=== PATIENT | male | born 1995 | race Caucasian/White ===

== ENCOUNTER 2025-05-15 08:18 | Inpatient (IN) | payer OTHER, SELFPAY ==
[2025-05-14] VITALS (10 sets, daily range): BP systolic 108–129; BP diastolic 74–90; BMI 30.9
[2025-05-14 13:30] LABS: Hematocrit 44.6 % (39.0-52.0); Hemoglobin 15.8 g/dL (13.0-18.0); Mean Corp Hgb Conc. 35.4 g/dL (33.0-37.0); Mean Corpuscular Volume 83.8 fL (80.0-94.0); Nucleated Red Blood Cells % 0 % (-); Platelet Count 267 10^3/uL (130-400); Red Cell Dist. Width 12.8 % (11.5-14.5)
[2025-05-14 13:47] LABS: ALT (SGPT) 47 U/L (0-50); AST (SGOT) 32 U/L (17-59); Albumin 5.0 g/dl (3.5-5.0); Alkaline Phosphatase 84 U/L (38-126); Blood Urea Nitrogen 9 mg/dl (9-20); Calcium 9.4 mg/dl (8.4-10.2); Carbon Dioxide 23 mmol/L (22-30); Chloride 104 mmol/L (98-107); Glucose 99 mg/dl (70-99); Lipase 187 U/L (23-300); Potassium 4.1 mmol/L (3.5-5.1); Sodium 137 mmol/L (135-145); Total Protein 8.5 g/dl (6.3-8.2); eGFR > 60.00
--- NOTE | 2025-05-14 15:31 | ED.GENMED ---
History of Present Illness
General
Chief Complaint: Abdominal Pain
Source: patient
Time Seen by Provider: 05/14/25 15:20
History of Present Illness
History of Present Illness:
29-year-old presents to the emergency room complaining of cramping abdominal pain, nausea, intermittent fever up to 102. He has decreased oral intake though has not been vomiting. The output into his ileostomy is more watery than normal. No
blood. Patient has a complicated history with Crohn's disease. He has had multiple abdominal surgeries including a colectomy and ileostomy. He has had revisions of his stoma as well as small bowel resection for adhesions of bowel obstruction. He
has had fistulas and abscesses in the past. Patient is followed by Dr. Darling at [facility]. Patient had his medications changed recently. He was on Stelara and was switched to it alternative biologic. He is concerned that the switch
may be causing a exacerbation.
Phy Exam
Physical Exam
Physical Exam:
General: Awake, Alert, Oriented X3. No acute distress.
Vitals: unremarkable
Head: Atraumatic
Eyes: Pupils equal, EOMI
Throat: Airway intact, no exudates
Neck: Trachea midline
Lungs: Clear and equal b/l
Heart: Regular rate, no murmurs
Abd: Soft, ostomy appliance in place, tender to palpation more on the right abdomen and under the ostomy.
Neuro: Nonfocal
Skin: Warm, dry, no rash
Extremities: pulses equal b/l, no edema
Course
Orders/Labs/Results
Orders:
Orders
05/14/25 13:23
C-Reactive Protein Urgent
Comment: ADD ON
Complete Blood Count/With Diff Urgent
Comprehensive Metabolic Panel Urgent
Lipase Urgent
05/14/25 15:29
Add On- LAB Urgent
Tests Added?: crp
CT Abd/pel W Iv And Oral Contr Urgent
Comment:
Reason For Exam: abd pain, fever, hx of crohn's multiple sx/ ileost
0.9% Sodium Chloride 1000 ml [Nss] 1,000 ml IV BOLUS
Iohexol [Omnipaque] See Protocol PO NOW STA
05/14/25 16:43
HYDROmorphone [Dilaudid] 0.25 mg IV NOW STA
05/14/25 18:48
Ondansetron Injectable [Zofran] 4 mg IV NOW STA
05/14/25 19:19
HYDROmorphone [Dilaudid] 0.25 mg IV NOW STA
05/15/25
WOUND/OSTOMY CONSULT Routine
Reason for Consult: Ileostomy
05/15/25 00:01
HYDROmorphone [Dilaudid] 0.25 mg IV NOW STA
05/15/25 01:30
Admit/Transfer Patient As Directed
Co-Sign Provider:
Level of Care: Observation services
Assign to:: Medical/Surgical
Physician / Group: Bimal
Diagnosis: Crohn's, Abdominal Pain
PRN Pain Medication Management As Directed
May give lesser potent ordered pain med per pt: Yes
preference::
Protocol:: Medication orders for pain may be administered in a
manner that supports deferring to patient preference
when the pt is:
- Requesting an ordered lesser potent pain medication.
Least to most potent pain medications are defined
as: acetaminophen < NSAID < tramadol < opioids
(morphine, oxycodone, hydromorphone).
- Requesting a lesser dose of the same medication IF
ORDERED.
- Requesting a less intrusive route of administration
if both routes are prescribed by the provider (PO <
IV).
05/15/25 01:31
Code Status As Directed
Resuscitation Status: Full Code
05/15/25 02:11
HYDROmorphone [Dilaudid] 0.25 mg IV Q4HPRN PRN
05/15/25 02:32
Acetaminophen [Tylenol] 650 mg PO Q4HPRN PRN
Lactated Ringers [Lr] 1,000 ml IV 100 mls/hr
Ondansetron Injectable [Zofran] 4 mg IV Q6HPRN PRN
Oxycodone [Roxicodone] 5 mg PO Q4HPRN PRN
05/15/25 02:32
Consult Notification Routine
Specialty to Notify: Gastroenterology
Date consulting provider notified: 05/15/25
Time consulting provider notified: 08:36
Notified:: Other
Comment: tiger text Dr Morales
GASTROINTESTINAL CONSULT Routine
Consulting Provider: Gina Morales
Was physician already notified: No
Reason for consult: Crohn's, Abd Pain
Activity As Directed
Activity Level: Ambulate
I/O [Intake/ Output] As Directed
Frequency: Per unit guidelines
Ostomy Care As Directed
Vital Signs As Directed
Frequency: Per unit guidelines
Oxygen Therapy [O2 Therapy] [RESP] Routine
Titrate/Wean O2 to maintain O2 sat greater than (%): 94
DX Deep Vein Thrombosis Video Routine
05/15/25 03:00
Flush (0.9% Sodium Chloride) [Flush (Nss)] See Dose Instructions IV PER PROTOCOL
05/15/25 Breakfast
Clear Liquid
At Your Request: Full Participation
Does patient need a safe tray?: No
05/15/25 07:24
Basic Metabolic Panel IN AM
Complete Blood Count/No Diff IN AM
05/15/25 08:00
0.9% Sodium Chloride [Nss (Preservative Free)] 10 ml IV DAILY
Pantoprazole [Protonix IV] 40 mg IV DAILY
Sertraline HCl [Zoloft] 150 mg PO DAILY
05/15/25 18:00
Enoxaparin Sodium [Lovenox] 40 mg SC QPM
Abnormal Lab Results
05/14/25 05/15/25
13:23 07:24
WBC 15.3 H 10^3/uL
(4.8-10.8)
MPV 10.7 H fL
(7.4-10.4)
Abs Immat Gran (auto) 0.1 H 10^3/uL
(0-0.05)
Absolute Neuts (auto) 12.5 H 10^3/uL
(1.4-6.5)
Neutrophils % 81.7 H %
(42.2-75.2)
Lymphocytes % 12.7 L %
(20.5-51.1)
C-Reactive Protein 73.70 H mg/L
(0.0-10.00)
Total Protein 8.5 H g/dl
(6.3-8.2)
05/15/25 07:24
05/15/25 07:24
Vital Signs
Initial and Last Documented VS:
Initial Vital Signs
Temp Pulse Resp BP Pulse Ox
98.4 F 93 16 129/89 98
05/14/25 13:05 05/14/25 13:05 05/14/25 13:05 05/14/25 13:05 05/14/25 13:05
Last Documented Vital Signs
Temp Pulse Resp BP Pulse Ox
98.3 F 77 16 109/77 100
05/16/25 10:00 05/16/25 10:00 05/16/25 10:00 05/16/25 10:00 05/16/25 10:00
MDM/Problems Addressed
Differential Diagnosis Includes:
Viral GI illness, intra-abdominal abscess, Crohn's flare, small bowel obstruction, fistula
MDM/Problems Addressed:
Patient presents to the emergency room with crampy abdominal pain, nausea, decreased appetite. He is afebrile here. White count is 15.3. CT shows no evidence of abscess. There is no bowel wall thickening or obstruction. There is a fistula noted
extending from the rectum to the ostomy. 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 They accept him in transfer. Recommended supportive care at this point.
*Radiology
Radiology exam reviewed: radiology read reviewed
*Pulse Oximetry
SaO2: 98
Patient hypoxic: no
*Critical Care Note
Total Time (30-74mins, 75-104mins- exclusive of procedures): Not Applicable
ED Attending Note
-
Portions of this chart may have been created with voice recognition software.� Occasional wrong word or��sound alike� substitutions may have occurred due to the inherent limitations of voice recognition software.
Discharge Plan
Departure
Patient Disposition: Admit
Date of Disposition: 05/14/25
Time of Disposition: 20:37
Presentation/result/management discussed w/ accepting MD/DO: Hospitalist
Condition: Fair
Discharge Problem:
Abdominal pain, Crohn's disease, Rectocutaneous fistula
Interventions
Interventions:
*Risk Screen - Suicide Last Done: 05/15/25 02:39
*General Assessment Last Done: 05/14/25 13:05
*Neglect/Abuse Screening Last Done: 05/14/25 13:05
*ED COVID-19 Vaccine History Last Done: 05/14/25 13:05
*ED Influenza Vaccine History Last Done: 05/14/25 13:05
[facility] Fall Risk Assessment Tool Last Done: 05/14/25 15:21
*Nursing Disposition Last Done: 05/15/25 02:31
FH-Tpzcft-Futrelzcco Assessment Last Done: 05/14/25 15:21
Discharge Date and Time
Discharge Date/Time: 05/15/25 02:31
[2025-05-14 16:24] LABS: C-Reactive Protein 73.70 mg/L (0.0-10.00)
[2025-05-14] MEDS: OMNIPAQUE 50 ML PO (16:33)
[2025-05-14] MEDS: DILAUDID 0.25 MG IV ×2 (17:17→19:25)
[2025-05-14] MEDS: NSS 1000 IV (17:17)
[2025-05-14] MEDS: ZOFRAN 4 MG IV (18:57)
[2025-05-15] VITALS: BP 121/75
[2025-05-15] MEDS: DILAUDID 0.25 MG IV ×4 (00:08→16:23)
--- NOTE | 2025-05-15 01:33 | HPS.HSE ---
Family Physician
-
Family Physician: Yary Edge DO
Chief Complaint
-
Abd Pain
History of Present Illness
Patient is a 29y M with PMH significant for Crohn's disease who presents to ED complaining of abdominal pain. Patient reports intermittent fevers overnight over the past week (two or three times total). He has felt increased fatigue and today
he started with crampy, diffuse abdominal discomfort. He states that his ostomy output has seemed 'more watery'. No bloody secretions / stools. No N/V.
Patient reports that his Stelara was changed to biosimilar Pyzchiva about 3-4 weeks ago and his symptoms seemed to have started thereafter. His symptoms were well-controlled on Stelara x many months.
His most recent surgery was in October 2023 At [facility] with Dr. Dickson and consisted of partial bowel resection with loop ostomy (ileostomy + mucus fistula).
His original / initial surgery was subtotal colectomy in at [facility].
Medical History
Past Medical History
Past Medical History: Reports Other
Additional Past Medical History:
Crohn's Disease
Depression
Past Surgical History: Reports Other
Additional Past Surgical History:
Colectomy
J-Pouch
Ileostomy / Reversal
Multiple Fistula Repairs, [place], etc
Partial Bowel Resection / Ostomy Revision / Mucus Fistula (October 2023)
Social History
Tobacco: Non-smoker
Alcohol: None
Family History
Family History: Not pertinent
Allergies / Home Medications
Allergies reflects when Allergies were last updated in doo.
Home Medications with original date entered in doo
Allergy/Medication List:
Allergies
Allergy/AdvReac Type Severity Reaction Status Date / Time
amoxicillin Allergy Rash Verified 05/14/25 13:08
morphine Allergy Hives Verified 05/14/25 13:08
flu vaccine Allergy Unknown Uncoded 05/14/25 13:08
Home Medications
sertraline 100 mg tablet 150 mg PO DAILY 05/15/25
ustekinumab-ttwe 90 mg/mL subcutaneous syringe (Pyzchiva) 45 mg SC Q12W 05/15/25
Review of Systems
-
History Source: Patient
A 12 point ROS was completed and negative except as noted: Yes
Constitutional: Reports Fever and Fatigue; Denies Chills
Respiratory: Denies Cough or Trouble Breathing
Cardiac: Denies Chest Pain or Palpitations
Abdomen/GI: Reports Abdominal Pain, Nausea and Diarrhea; Denies Vomiting or Bloody Stools
: Denies Dysuria, Frequency or Flank Pain
Musculoskeletal: Denies Joint Pain or Edema
Neurological: Denies Dizzy or Headache
Psych: Denies Depression or Anxiety
Physical Exam
Vital Signs
Vital Signs
Temp Pulse Resp BP Pulse Ox
98.5 F 87 18 121/75 99
05/14/25 23:30 05/15/25 00:00 05/15/25 00:00 05/15/25 00:00 05/15/25 00:00
Physical Exam
General: Other (29y M in no acute distress.)
HEENT: Moist mucous membranes
Respiratory: Clear; No Wheezes, Rales or Rhonchi
Cardiac: S1/S2 and Regular Rhythm; No Murmur
GI: Other (Abdomen is soft. Mildly / diffusely tender, RLQ / midline ostomy intact with opaque collection device overlying. )
Musculoskeletal: No Clubbing, No Cyanosis and No Edema
Neuro: AO x 3
Laboratory Results
-
05/14/25 13:23
05/14/25 13:23
Laboratory Results
Total Bilirubin 1.2 mg/dl (0.2-1.3) 05/14/25 13:23
AST 32 U/L (17-59) 05/14/25 13:23
ALT 47 U/L (0-50) 05/14/25 13:23
Alkaline Phosphatase 84 U/L (38-126) 05/14/25 13:23
Lipase 187 U/L (23-300) 05/14/25 13:23
Impression/Plan
-
A/P: Patient is a 29y M with PMH significant for Crohn's disease who presents to ED complaining of abdominal pain.
Crohn's Disease with Possible Acute Flare
- Observe overnight for further evaluation and treatment.
- CRP significantly elevated, mild leukocytosis with L shift.
- CT scan reviewed and does not show any new cutaneous fistula disease.
- There is known ileostomy and mucus fistula, but no evidence of bowel wall thickening, acute inflammation or new cutaneous fistulizing disease.
- Afebrile here in the ED - follow temperature curve.
- Supportive care for now with pain control, IVFs, etc.
- Patient accepted in transfer to [facility] for further evaluation. Typically followed by Dr. Darling. Accepted to service of Dr. Gao.
- Awaiting bed availability at [place].
- GI consulted for local evaluation if patient still awaiting transfer in the AM.
- Follow for any new / worsening symptoms.
Anxiety / Depression
- Stable. Continue sertraline.
DVT Prophylaxis: Lovenox
Code Status: Full
[2025-05-15 02:31] VITALS: BMI 29.5
[2025-05-15 02:35] VITALS: BP 109/74
[2025-05-15] MEDS: LR 1000 IV ×2 (03:15→17:36)
[2025-05-15] MEDS: ROXICODONE 5 MG PO ×3 (03:16→17:40)
--- NOTE | 2025-05-15 05:27 | PTCARENOTE ---
Pt arrived to unit at 0230 from ED on stretcher. Patient ambulated to bed w/o assist-steady gait and erect posture. Patient does endorse pain w/ ambulation in abd-See MAR. Stoma red & budded w/ stool output. IVF started. Patient made aware on POC
and is agreeable to it at this time. Bed in lowest position and locked, call allen within reach, patient has no further complaints at this time.
[2025-05-15 07:18] VITALS: BP 105/64
[2025-05-15 08:21] LABS: Hematocrit 45.0 % (39.0-52.0); Hemoglobin 15.5 g/dL (13.0-18.0); Mean Corp Hgb Conc. 34.4 g/dL (33.0-37.0); Mean Corpuscular Volume 85.7 fL (80.0-94.0); Platelet Count 273 10^3/uL (130-400); Red Cell Dist. Width 12.7 % (11.5-14.5)
[2025-05-15 08:47] LABS: Blood Urea Nitrogen 9 mg/dl (9-20); Calcium 9.3 mg/dl (8.4-10.2); Carbon Dioxide 23 mmol/L (22-30); Chloride 102 mmol/L (98-107); Estimated Creatinine Clearance > 125 ml/min; Glucose 85 mg/dl (70-99); Potassium 4.1 mmol/L (3.5-5.1); Sodium 136 mmol/L (135-145); eGFR > 60.00
--- NOTE | 2025-05-15 08:59 | WOUNDNOTE ---
WOC RN note: Patient stated he has his own ileostomy pouching supplies and that his appliance is not causing problems. He is independent in his ostomy care. Will sign off. Call if needed.
[2025-05-15] MEDS: ZOLOFT 150 MG PO (09:02)
[2025-05-15] MEDS: PROTONIX IV 40 MG IV (09:02)
[2025-05-15] MEDS: NSS (PRESERVATIVE FREE) 10 ML IV (09:02)
--- NOTE | 2025-05-15 10:23 | CM ---
Patient seen at bedside on [address]. Patient stated that he is for transfer to [place]. Patient lives alone in an apartment on the 2nd floor. Patient PCP is Dr. Edge and he uses the [facility] in [place] for pharmacy needs. Patient states that he does
not have current VN and that he anticipates returning to his home when medically appropriate. CM will continue to follow for discharge planning needs.
Plan; transfer to [place] per patient; pending medical treatment plan
--- NOTE | 2025-05-15 10:51 | CON.GI ---
Addendum entered and electronically signed by Gina Morales DO 05/15/25 12:29:
The patient was seen and examined by me independently in collaboration with the nurse practitioner.
Past medical history/social history/medications/allergies/family history reviewed.
Lab data and imaging data reviewed.
Xu Kimble is a 29-year-old male who was initially diagnosed with ulcerative colitis status post IPAA (initial dx in [address] showing pancolitis), unfortunately, following his surgery he developed persistent perirectal abscess, fistulas,
pouchitis and has required multiple I&Ds, seton placement, s/p ileostomy (07/12/22), followed by ex lap, resection of TI and anastaomosis and formation of an ileostomy on 11/01/23 for SBO, at which time he was changed form Rinvoq to Stelara. His
diagnosis was changed to Crohns disease. Reconnection currently on hold. He has previously been on inflectra (2019), Humira (02/2022-05/2023), Rinvoq (2022), Stelara (12/2023). 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 He
reports being in remission on Stelara for about a year, recently was changed to biosimilar, pyzchiva, just had his first dose a few weeks ago. He presents with 1 day of abdominal pain and just feeling 'off.' Reports watery output in ileostomy, no
increase in frequency of output, empties his bag about 3-4x per day. CT on admission shows cholelithiasis with a gallstone in the region of the neck of the gallbladder, maximum dimension of 2.[address] evidence of gallbladder wall thickening, no
significant stranding of the fat surrounding the gallbladder to suggest cholecystitis. No intrahepatic or extrahepatic biliary ductal dilatation. In the right lower abdomen and upper pelvis there is an ileostomy. There is also a mucous fistula
extending through the ostomy from the rectum. There appears to be a small amount of contrast leaks around the base of the ostomy and extends into the umbilicus. No evidence to suggest fistula extending to the umbilicus. No evidence of bowel
obstruction.
Labs on admission significant for leukocytosis, WBC 15.3 --> 7.7, hemoglobin stable at 15.5, Plt 273,, CRP elevated to 73.7
Given his complex IBD history and CT findings of fistula, and he has been accepted to [facility] where his surgeons and primary key attendant are, currently awaiting bed. I agree that this is in the best interest of his care.
Original Note:
Consultation
-
Date/Time Consultation Requested: 05/15/25 0230
Date/Time Consultation Performed: 05/15/25 1045
Requesting Provider: Luis Miguel Wallis DO
Performing Provider: JOSESITO Mc, Jasmyn Morales DO
Reason for Consultation: abdominal pain
Medical History
Chief Complaint / HPI
Chief Complaint: abdominal pain
History of Present Illness:
Pt is a 29yo with hx asthma, GERD, depression, Asperger's and crohn's disease with also hx pyoderma rash around ostomy last year . In review of [facility] records pt was originally diagnosed with ulcerative colitis DARLENE with 3 stage J pouch complicated
by perianal abscess/fistula and pouchitis with multiple I+D's seton placement s/p ileostomy 07/12/22. He had further surgery with exp lap, resection of terminal ileum and anastomosis with formation of ilesotomy/mucous fistula on 11/01/23 for small
bowel obstruction while on rivoq with care at [facility]. He now presents with abdominal pain, fever over last week with fatigue. he did recently switch from stelara to biosimilar Prychiva about 3-4 weeks ago with onset of symptoms and control for
several months with [facility]. (other prior med were Inflectra 2019, Humira 02/2022- 05/2023, Rinvoq 2022, with increased disease activity on 30mg, Stelara 12/2023 to current with recent biosimilar change several weeks ago). Pt now presents with
abdominal pain and increased watery output from ileostomy and feeling weak while at work. Pain in lower abdomen with crampy pattern. Similar to prior crohns flares. It is similar to pain he has had in past. On admission noted with WBC 15,300,
hbg 15,8, CRP 73.7, otherwise stable chemistry. Ct on admission Ileostomy is present as well as a mucous fistula extending from the region of the rectum. There is no evidence for bowel obstruction or free intraperitoneal air. No significant bowel
wall thickening is identified.There is a gallstone present in the region of the neck of the gallbladder. The gallbladder is distended, with no evidence for gallbladder wall thickening or stranding of the fat surrounding the gallbladder. No CT
findings of acute cholecystitis at this time. No evidence for biliary ductal dilation.
In review with patient he denies odynophagia, dysphagia, GERD, nausea, vomiting, blood or black in stools.
last flex sig ENDO:
Flex Sig 02/2024
- There is evidence of a total proctocolectomy with an IPAA (Ileal-Pouch Anal Anastamosis)
- The rectum was normal measuring 2 cm in length- biopsied x 4
- The pouch appeared normal (measuring 15 in length) with no evidence of ulceration of inflammation.
- The scope was advanced 10 in to the afferent limb of the J pouch - the prepouch ileum and this was normal. There was a stapled lumen that precluded evaluation of the lumen more prximally
- Small internal Hemorrhoids are present
Pathology
A. Rectum, biopsy:
- Small fragments of colorectal mucosa with � �no specific pathologic change.
�
Ileoscopy 02/2024
�- The examined portion of the ileum was normal. Patient is status-post total proctocolectomy with a loop ileostomy in the preence of an IPAA.
- The visulaized mucosa of the distal 10 cm of the ileostomy was normal.
- At 10 cm form te ileostomy orifice there was angulation and a stabple was present that despite gentel pressure and water lavege the scop was unable
to advance more proximally.
- There is no visual evidence of active IBD seen.
- No specimens collected.
Past Medical History
Past Medical History: Asthma, GERD, Psychiatric (depression) and Other (crohns disease anal fistula , aspergers syndrome, prior pyoderma rash around ostomy last year)
Past Surgical History: Bowel Resection (colectomy, J pouch, ileostomy wtih reversal, multiple fistula repairs and setons see HPI)
Social History
Tobacco: Non-Smoker
Alcohol: Occasional
Drug: None
Personal: Single
Living: With Family
Employment: Employed
Family History
Family History: Other (no family hx crohns or UC)
Allergies / Home Medications
Allergy/AdvReac Type Severity Reaction Status Date / Time
amoxicillin Allergy Rash Verified 05/14/25 13:08
morphine Allergy Hives Verified 05/14/25 13:08
flu vaccine Allergy Unknown Uncoded 05/14/25 13:08
�Medication �Instructions �Recorded
sertraline 100 mg tablet 150 mg PO DAILY 05/15/25
ustekinumab-ttwe 90 mg/mL 45 mg SC Q12W 05/15/25
subcutaneous syringe (Pyzchiva)
Review of Systems
-
History Source: Patient and Family
Constitutional: Reports Weight Loss (10 lbs )
EENT: Reports No Symptoms
Respiratory: Reports No Symptoms
Abdomen/GI: Reports Abdominal Pain and Diarrhea (looser stool in ostomy)
: Reports No Symptoms
Musculoskeletal: Reports No Symptoms
Skin: Reports No Symptoms
Neurological: Reports Weakness
Endocrine: Reports No Symptoms
Hematologic/Lymphatic: Reports No Symptoms
Vital Signs
Temp Pulse Resp BP Pulse Ox
97.9 F 61 16 105/64 99
05/15/25 07:18 05/15/25 07:18 05/15/25 07:18 05/15/25 07:18 05/15/25 07:18
Physical Exam
Exam
General: Well Developed, Well Nourished and No Apparent Distress
HEENT: Normocephalic and Anicteric
Respiratory: Clear
Cardiac: Regular Rhythm
GI: Soft, Non Distended, Tender (LLQ below ostomy) and Other (ostomy with brown liquid stool)
Musculoskeletal: No Clubbing and No Cyanosis
Skin: Warm and Dry
Neuro: Awake, Alert and AO x 3
Psych: Calm
Results
WBC 7.7 10^3/uL (4.8-10.8) 05/15/25 07:24
Hgb 15.5 g/dL (13.0-18.0) 05/15/25 07:24
Hct 45.0 % (39.0-52.0) 05/15/25 07:24
MCV 85.7 fL (80.0-94.0) 05/15/25 07:24
Plt Count 273 10^3/uL (130-400) 05/15/25 07:24
Absolute Neuts (auto) 12.5 10^3/uL (1.4-6.5) H 05/14/25 13:23
Sodium 136 mmol/L (135-145) 05/15/25 07:24
Potassium 4.1 mmol/L (3.5-5.1) 05/15/25 07:24
Chloride 102 mmol/L (98-107) 05/15/25 07:24
Carbon Dioxide 23 mmol/L (22-30) 05/15/25 07:24
BUN 9 mg/dl (9-20) 05/15/25 07:24
Creatinine 0.8 mg/dL (0.7-1.3) 05/15/25 07:24
Calcium 9.3 mg/dl (8.4-10.2) 05/15/25 07:24
Total Bilirubin 1.2 mg/dl (0.2-1.3) 05/14/25 13:23
AST 32 U/L (17-59) 05/14/25 13:23
ALT 47 U/L (0-50) 05/14/25 13:23
Alkaline Phosphatase 84 U/L (38-126) 12/11/25 13:23
Lipase 187 U/L (23-300) 05/14/25 13:23
Diagnostic Image Results:
05/14/25 - CT a/p IV and oral
IMPRESSION: Ileostomy is present as well as a mucous fistula extending from the region of the rectum. There is no evidence for bowel obstruction or free intraperitoneal air. No significant bowel wall thickening is identified.
There is a gallstone present in the region of the neck of the gallbladder. The gallbladder is distended, with no evidence for gallbladder wall thickening or stranding of the fat surrounding the gallbladder. No CT findings of acute cholecystitis at
this time. No evidence for biliary ductal dilation.
04/25/24- CT - [facility] second opinion
prior SB disention no longer noted, sugical changes of subtotal colectomy with ileocolonic anastomosis and RLQ ilostomy, cholelithiasis, spleen, pancreas, kidney, adrenal normal, prostate and bladder normal, no ascites or adenopathy, vasculature
normal, lungs clear, no osseous pathology
last flex sig ENDO:
Flex Sig 02/2024- [facility]
- There is evidence of a total proctocolectomy with an IPAA (Ileal-Pouch Anal Anastamosis)
- The rectum was normal measuring 2 cm in length- biopsied x 4
- The pouch appeared normal (measuring 15 in length) with no evidence of ulceration of inflammation.
- The scope was advanced 10 in to the afferent limb of the J pouch - the prepouch ileum and this was normal. There was a stapled lumen that precluded evaluation of the lumen more prximally
- Small internal Hemorrhoids are present
Pathology
A. Rectum, biopsy:
- Small fragments of colorectal mucosa with � �no specific pathologic change.
�
Ileoscopy 02/2024- [facility]
�- The examined portion of the ileum was normal. Patient is status-post total proctocolectomy with a loop ileostomy in the preence of an IPAA.
- The visulaized mucosa of the distal 10 cm of the ileostomy was normal.
- At 10 cm form te ileostomy orifice there was angulation and a stabple was present that despite gentel pressure and water lavege the scop was unable
to advance more proximally.
- There is no visual evidence of active IBD seen.
- No specimens collected.
Prior GI Procedures:
Assessment / Plan
-
Pt is a 29yo with hx asthma, GERD, depression, Asperger's and crohn's disease with also hx pyoderma rash around ostomy last year. pt follows with Dr. Darling at [facility]. In review of [facility] records pt was originally diagnosed with ulcerative
colitis DARLENE with 3 stage J pouch complicated by perianal abscess/fistula and pouchitis with multiple I+D's seton placement s/p ileostomy 07/12/22. He had further surgery with exp lap, resection of terminal ileum and anastomosis with formation of
ileostomy/mucous fistula on 11/01/23 for small bowel obstruction while on rivoq with care at [facility]. He now presents with abdominal pain, fever over last week with fatigue. he did recently switch from Stelara to biosimilar Prychiva about 3-4 weeks
ago with onset of symptoms and control for several months with [facility]. (other prior med were Inflectra 2019, Humira 02/2022- 05/2023, Rinvoq 2022, with increased disease activity on 30mg, Stelara 12/2023 to current with recent biosimilar change
several weeks ago). Pt now presents with abdominal pain and increased watery output from ileostomy and feeling weak while at work. Pain in lower abdomen with crampy pattern. Similar to prior crohns flares. It is similar to pain he has had in
past. On admission noted with WBC 15,300, hbg 15,8, CRP 73.7, otherwise stable chemistry. Ct on admission Ileostomy is present as well as a mucous fistula extending from the region of the rectum. There is no evidence for bowel obstruction or free
intraperitoneal air. No significant bowel wall thickening is identified.There is a gallstone present in the region of the neck of the gallbladder. The gallbladder is distended, with no evidence for gallbladder wall thickening or stranding of the fat
surrounding the gallbladder. No CT findings of acute cholecystitis at this time. No evidence for biliary ductal dilation. In review with patient he otherwise denies odynophagia, dysphagia, GERD, nausea, vomiting, blood or black in stools.
-abdominal pain with change in ostomy drainage over last week weeks with weakness after change to biosimilar
-hx crohns with multiple surgical interventions and medication changes as noted
-increased CRP with concern for crohns flare
-leukocytosis with fever prior to admission
-ileostomy with mucosa fistula
-wt loss
other med problems:
asthma, GERD, depression, Asperger's pyoderma rash around ostomy last year
PLAN:
Etiology of symptoms with concern for crohns flare with pain and change in stools, infectious vs other
would also be concerned with recent change from biosimilar leading to symptoms
check stool studies and fecal mookie
pt asking for diet --- will allow low residue diet
cont to follow up for fever noted prior to admission -- no further fever since admission
steroids and abx held for now
pt is schedule for transfer to [facility] for higher level of care with hx extensive crohns with multiple surgical intervention/medication changes etc with primary team at [facility]
pt has left message to review medication management with his primary team
cont Lovenox for DVT prophylaxsis
family updated
-
-
Thank you for consultation and allowing me to participate in the patient's care. Please call the superintendent plant protection GI physician during the after hours with any questions or concerns.
--- NOTE | 2025-05-15 11:50 | W.PN.UPDATE ---
Update Note
Progress Note Update
Patient seen and examined after postmidnight admission. Reports some mild abdominal discomfort. Asking to eat. Vital signs stable. No acute distress, awake and alert. Regular rate and rhythm, normal S1-S2. Clear to auscultation bilaterally
anteriorly. Positive bowel sounds, soft, nontender to light palpation, nondistended.
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 There is no evidence for bowel obstruction or free intraperitoneal air. No significant bowel wall thickening is identified. There is a gallstone
present in the region of the neck of the gallbladder. The gallbladder is distended, with no evidence for gallbladder wall thickening or stranding of the fat surrounding the gallbladder. No CT findings of acute cholecystitis at this time. No evidence
for biliary ductal dilation.
Case discussed with GI. Patient currently is nontoxic. Diet advanced to low residue. Awaiting transfer to [facility].
[2025-05-15 15:31] VITALS: BP 123/74
[2025-05-15] MEDS: LOVENOX 40 MG SC (17:40)
[2025-05-15 23:46] VITALS: BP 106/65
[2025-05-16] MEDS: LR 1000 IV (01:13)
[2025-05-16 07:07] VITALS: BP 110/75
[2025-05-16] MEDS: NSS (PRESERVATIVE FREE) 10 ML IV (07:42)
[2025-05-16] MEDS: ZOLOFT 150 MG PO (07:42)
[2025-05-16] MEDS: DILAUDID 0.25 MG IV (07:42)
[2025-05-16] MEDS: PROTONIX IV 40 MG IV (07:42)
--- NOTE | 2025-05-16 08:06 | W.PN.GI.CBS2 ---
Addendum entered and electronically signed by Gina Morales DO 05/16/25 08:57:
The patient was seen and examined by me independently in collaboration with the nurse practitioner.
Past medical history/social history/medications/allergies/family history reviewed.
Lab data and imaging data reviewed.
Overall, improving. He is tolerating a low residue diet. Stool studies pending. He is currently accepted as a transfer to [facility] for management of his crohns, awaiting a bed. Given symptomatic improvement, discussed with patient that I feel he could be
discharged and f/u with his surgeon/primary GI doctor as an outpatient, which he may want to do.
If tolerates breakfast okay, okay for d/c and f/u with [facility] as outpatient
GI will sign off, please call with questions
Original Note:
Today's Communication / Plan
-
Etiology of symptoms with concern for crohns flare with pain and change in stools concern for biologic change is playing a role. Infectious etiology neg so far
c-diff, giardia/crypto neg no WBC's seen, other stools and fecal mookie pending
cont low residue diet
overall patient improved from weakness and pain standpoint
discussed with patient if continued improvement this am would consider discharge and OP follow up with [facility] to discuss ongoing therapy
cont to hold steroids and abx
Pt has left message to [facility] to discuss care
cont Lovenox for DVT prophylaxis
stable from GI for discharge if no other issue this am and continued diet tolerance
Assessment / Plan
-
Pt is a 29yo with hx asthma, GERD, depression, Asperger's and crohn's disease with also hx pyoderma rash around ostomy last year. pt follows with Dr. Darling at [facility]. In review of [facility] records pt was originally diagnosed with ulcerative
colitis DARLENE with 3 stage J pouch complicated by perianal abscess/fistula and pouchitis with multiple I+D's seton placement s/p ileostomy 07/12/22. He had further surgery with exp lap, resection of terminal ileum and anastomosis with formation of
ileostomy/mucous fistula on 11/01/23 for small bowel obstruction while on rivoq with care at [facility]. He now presents with abdominal pain, fever over last week with fatigue. he did recently switch from Stelara to biosimilar Prychiva about 3-4 weeks
ago with onset of symptoms and control for several months with [facility]. (other prior med were Inflectra 2019, Humira 02/2022- 05/2023, Rinvoq 2022, with increased disease activity on 30mg, Stelara 12/2023 to current with recent biosimilar change
several weeks ago). Pt now presents with abdominal pain and increased watery output from ileostomy and feeling weak while at work. Pain in lower abdomen with crampy pattern. Similar to prior crohns flares. It is similar to pain he has had in
past. On admission noted with WBC 15,300, hbg 15,8, CRP 73.7, otherwise stable chemistry. Ct on admission Ileostomy is present as well as a mucous fistula extending from the region of the rectum. There is no evidence for bowel obstruction or free
intraperitoneal air. No significant bowel wall thickening is identified.There is a gallstone present in the region of the neck of the gallbladder. The gallbladder is distended, with no evidence for gallbladder wall thickening or stranding of the fat
surrounding the gallbladder. No CT findings of acute cholecystitis at this time. No evidence for biliary ductal dilation.
-abdominal pain with change in ostomy drainage over last week weeks with weakness after change to biosimilar
-hx crohns with multiple surgical interventions and medication changes as noted
-increased CRP with concern for crohns flare
-leukocytosis with fever prior to admission
-ileostomy with mucosa fistula
-wt loss
other med problems:
asthma, GERD, depression, Asperger's pyoderma rash around ostomy last year
PLAN:
Etiology of symptoms with concern for crohns flare with pain and change in stools concern for biologic change is playing a role. Infectious etiology neg so far
c-diff, giardia/crypto neg no WBC's seen, other stools and fecal mookie pending
cont low residue diet
WBC remain normal and no fever documented during admission
overall patient improved from weakness and pain standpoint
discussed with patient if continued improvement this am would consider discharge and OP follow up with [facility] to discuss ongoing therapy
cont to hold steroids and abx
Pt has left message to [facility] to discuss care
cont Lovenox for DVT prophylaxis
stable from GI for discharge if no other issue this am and continued diet tolerance
Subjective
Subjective
Date of Service: May 16, 2025
low residue diet, liquid brown ostomy drainage-- abdominal pain improved
Objective
Data Reviewed
Laboratory Data:
Laboratory Results
05/15/25 07:24
05/15/25 07:24
Laboratory Results
Total Bilirubin 1.2 mg/dl (0.2-1.3) 05/14/25 13:23
AST 32 U/L (17-59) 05/14/25 13:23
ALT 47 U/L (0-50) 05/14/25 13:23
Alkaline Phosphatase 84 U/L (38-126) 05/14/25 13:23
Lipase 187 U/L (23-300) 05/14/25 13:23
Vital Signs and I&O:
Vital Signs
Temp Pulse Resp BP Pulse Ox
97.5 F 69 16 106/65 98
05/15/25 23:46 05/15/25 23:46 05/15/25 23:46 05/15/25 23:46 05/15/25 23:46
I&O
05/15/25 05/16/25 05/17/25
06:59 06:59 06:59
Intake Total 309 / 309 1240 / 1240
Output Total 150 / 150
Balance 309 / 309 1090 / 1090
Physical Exam
Physical Exam
HEENT: Anicteric and Moist mucous membranes
Cardiology: Normal Sinus Rhythm
Pulmonary: Clear
GI: Soft, Non Distended, Non Tender and Other (ostomy with intact appliance )
Extremities: No Edema
Neuro: Non Focal
--- NOTE | 2025-05-16 09:10 | W.PN.HOSP.TC ---
Today's Communication/Plan
-
d/c
Assessment / Plan
Assessment / Plan
Gen: NAD, AAOx3.
Eyes: EOMI, PERRLA, no scleral icterus.
Neck: supple.
CV: RRR, +S1/S2, no m/r/g.
Resp: CTAB, no rales, wheezes, or rhonchi.
Abd: +BS, soft, NT, ND
Skin: No rashes.
Neuro: CN 2-12 intact, non-focal.
Psych: Normal mood and affect.
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 There is no evidence for bowel obstruction or free intraperitoneal air. No significant bowel wall thickening is identified. There is a gallstone
present in the region of the neck of the gallbladder. The gallbladder is distended, with no evidence for gallbladder wall thickening or stranding of the fat surrounding the gallbladder. No CT findings of acute cholecystitis at this time. No evidence
for biliary ductal dilation.
Crohn's disease:
-at this point doubt acute flare
-case discussed with [facility] for d/c home, no change to medications
-tolerating LR diet
Anxiety/Depression: cont Zoloft
Total time spent on d/c = 31 min. This included today's physical exam, progress note, review of laboratory and diagnostic data, preparation of discharge documents and prescriptions, and discussions about the pt's hospital course and discharge plan
with the patient and other front office medical assistant involved in the patient's care.
Anticipated Discharge: Today
Subjective/Interval History
-
Date of Service: May 16, 2025
Currently denies abd pain. Tolerating diet.
Objective Data
-
Vital Signs:
Vital Signs
Temp Pulse Resp BP Pulse Ox
97.9 F 67 18 110/75 100
05/16/25 07:07 05/16/25 07:07 05/16/25 07:07 05/16/25 07:07 05/16/25 07:07
I&O
05/15/25 05/16/25 05/17/25
06:59 06:59 06:59
Intake Total 309 / 309 1240 / 1240
Output Total 150 / 150
Balance 309 / 309 1090 / 1090
[2025-05-16 10:00] VITALS: BP 109/77
--- NOTE | 2025-05-16 11:58 | CM ---
Patient has been medically cleared for discharge to home with no additional skilled services. Patient arranged for transport home.
--- NOTE | 2025-05-16 13:51 | W.DCSUMMARY ---
Discharge Summary
Discharge Data
Date of Admission: 05/15/25
Date of Discharge: 05/16/25
-
Pending Results: No
Hospital Course
Primary diagnoses:
Abdominal pain
Crohn's disease
Secondary diagnoses:
Anxiety
Depression
Consultants:
Gastroenterology
Imaging:
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 There is no evidence for bowel obstruction or free intraperitoneal air. No significant bowel wall thickening is identified. There is a gallstone
present in the region of the neck of the gallbladder. The gallbladder is distended, with no evidence for gallbladder wall thickening or stranding of the fat surrounding the gallbladder. No CT findings of acute cholecystitis at this time. No evidence
for biliary ductal dilation.
Hospital course: 29-year-old male who was admitted yesterday after presenting with a chief complaint of abdominal pain as outlined in the H&P done on admission. Imaging above. Patient was initially accepted in transfer to [facility] but was admitted as
there was no bed immediately available. Patient was seen in consultation by GI. The patient's symptoms improved. His diet was advanced and he was tolerating a solid diet at time of discharge. He was cleared for discharge by gastroenterology
without any changes to his medications.
Discharge Plan
-
Patient Disposition: Home (Routine Discharge)
Discharge Diagnosis/Procedures: Abdominal pain
Condition: Good
Diet: Low Residue
Activity: As tolerated
Driving Restrictions: As prior to admission
Referrals:
Yary Edge, DO [Family Provider, Internal Medicine] - in less than 1 week
Prescriptions:
Continued
sertraline 100 mg tablet
150 mg PO DAILY
ustekinumab-ttwe [Pyzchiva] 90 mg/mL syringe
45 mg SC Q12W
Discharge Orders:
Discharge Patient (As Directed); Ordered 05/16/25
Ordered By: Suleman Tapia
Discharge Date and Time
Discharge Date/Time: 05/16/25 11:00
Print Language: CROATIAN
== END 2025-05-16 11:00 | disposition home or self-care (01) | DRG 386 ==
LOC: 2 NORTH 08:18
PROVIDERS: Nurse Practitioner Adult Health; ADMITTING PHYSICIAN Hospitalist; ATTENDING PHYSICIAN Internal Medicine; CONSULT PHYSICIAN Internal Medicine; EMERGENCY PHYSICIAN Emergency Medicine; FAMILY PHYSICIAN Internal Medicine
DX: K50.90 Crohn's disease, unspecified, without complications (principal); F84.5 Asperger's syndrome; F32.A Depression, unspecified; K80.20 Calculus of gallbladder without cholecystitis without obstruction; J45.909 Unspecified asthma, uncomplicated; K21.9 Gastro-esophageal reflux disease without esophagitis; F41.9 Anxiety disorder, unspecified; D72.829 Elevated white blood cell count, unspecified; Z60.2 Problems related to living alone; Z90.49 Acquired absence of other specified parts of digestive tract; Z88.5 Allergy status to narcotic agent; Z88.0 Allergy status to penicillin; Z88.7 Allergy status to serum and vaccine; Z93.2 Ileostomy status
CPT/HCPCS: 74177; 80048; 80053; 83690; 83993; 85025; 85027; 86140; 87045; 87046; 87324; 87328; 87329; 87427; 87449; 89055; 96361; 96374; 96375; 96376; 99285; Q9967